=== PATIENT | female | born 1940 | race Caucasian/White ===

== ENCOUNTER 2017-04-24 14:07 | Outpatient (CLI) | payer MEDICARE ==
--- NOTE | 2017-04-24 16:52 | CT Report ---
NONCONTRAST CT SCAN OF THE HEAD: 04/24/2017 CLINICAL HISTORY: Patient fell. TECHNIQUE: Axial, sagittal and coronal reconstruction images done at 5 x 5 mm intervals. COMPARISON: None. FINDINGS: Cerebral ventricles demonstrate mild to moderate dilatation. The left lateral ventricle is more dilated than the right. Mildly prominent sulci are seen. Combination of findings are most likely a result in part of age- related cerebral atrophy. 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 This presents as a hypodensity within these areas measuring 1.2 cm x 0.6 cm. In addition, there is evidence of microvascular ischemic change/gliosis silhouetting the more anterior aspect of the anterior horn of the left lateral ventricle, most likely a result of this old infarct. Atrophy in the area of the old infarct is producing asymmetrical widening of the anterior horn of the left lateral ventricle. Inferior tip of the cerebellar tonsils lies at the level of the foramen magnum. Sella turcica is not enlarged. No hemorrhage is noted. No extra-axial fluid collections are seen. Bone windows show no fracture. There is a small air-fluid level in the right maxillary sinus. This is nonspecific. This may be a result of trauma, allergy or sinusitis. IMPRESSION: EXAMINATION IS NEGATIVE FOR ACUTE INTRACRANIAL ABNORMALITY. 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 MILD ASYMMETRICAL DILATATION OF THE ANTERIOR HORN OF THE LEFT LATERAL VENTRICLE RELATED TO MILD ATROPHY FROM THE OLD INFARCT. SMALL AIR-FLUID LEVEL IS SEEN IN THE RIGHT MAXILLARY SINUS OF QUESTIONABLE ETIOLOGY. IT MAY BE A RESULT OF TRAUMA, ALLERGY, OR MILD SINUSITIS. JOB #: [id number] EXT JOB #: [id number] [facility]
== END 2017-04-24 14:08 | disposition home or self-care (01) ==
LOC: DI 14:07
PROVIDERS: ATTEND Nurse Practitioner Family
DX: R51 Headache (principal); M16.11 Unilateral primary osteoarthritis, right hip; Z86.73 Personal history of transient ischemic attack (TIA), and cerebral infarction without residual deficits
CPT/HCPCS: 70220; 70450

== ENCOUNTER 2017-04-24 15:15 | Outpatient (CLI) | payer MEDICARE ==
--- NOTE | 2017-04-24 19:16 | XRAY Report ---
EXAM: RIGHT HIP AND PELVIS RADIOGRAPHY EXAM DATE: 04/24/2017 04:00 PM. HISTORY: Right hip pain. COMPARISONS: 06/06/2010. TECHNIQUE: 1 view of the pelvis and 1 view of the hip. FINDINGS: Bones: Normal. No fracture or bone lesion. Joints: Stable left hip arthroplasty. Worsening narrowing, sclerosis, and spurring of the right hip j oint. There are also sclerotic changes of the symphysis pubis and lower lumbar spine. Soft Tissues: Left lower quadrant ostomy noted. IMPRESSION: Severe osteoarthritis of the right hip joint, worse than prior. [facility] Referring Provider Line: [phone] SITE ID: [id number]
== END 2017-04-24 15:16 | disposition home or self-care (01) ==
LOC: DI 15:15
PROVIDERS: ATTEND Nurse Practitioner Family
DX: M25.551 Pain in right hip (principal)

== ENCOUNTER 2017-04-24 15:37 | Outpatient (CLI) | payer MEDICARE ==
--- NOTE | 2017-04-24 19:17 | XRAY Report ---
EXAM: SINUS RADIOGRAPHY EXAM DATE: 04/24/2017 04:02 PM. CLINICAL HISTORY: Sinus pain after fall 7 days ago. COMPARISONS: None. TECHNIQUE: 3 views. FINDINGS: Bones: Normal. No fractures or bone lesions. Sinuses: Air-fluid level in the right maxillary sinus, otherwise no opacities or fluid levels. Mastoid Air Cells: Clear. Other: Normal. No soft tissue swelling. IMPRESSION: Right maxillary sinus air-fluid level, otherwise unremarkable sinus radiography. [facility] Referring Provider Line: [phone] SITE ID: [id number]
== END 2017-04-24 15:38 | disposition home or self-care (01) ==
LOC: DI 15:37
PROVIDERS: ATTEND Nurse Practitioner Family
DX: J34.89 Other specified disorders of nose and nasal sinuses (principal)
CPT/HCPCS: 70220